=== PATIENT | female | born 1975 | race Caucasian/White ===

== ENCOUNTER 2022-06-07 09:32 | Emergency (ER) | payer OTHER, MEDICAID ==
[~2022-06-07] VITALS: Ht 165.1 cm; Wt 115.6 kg
[2022-06-07] MEDS ORDERED: LIDODERM1 EACH TOP (10:21)
[2022-06-07] MEDS ORDERED: NAPROSYN500 MG PO (10:21)
== END 2022-06-07 10:45 | disposition home or self-care (01) ==
LOC: ED 09:32
DX: S39.012A Strain of muscle, fascia and tendon of lower back, initial encounter (principal); J45.909 Unspecified asthma, uncomplicated; V47.5XXA Car driver injured in collision with fixed or stationary object in traffic accident, initial encounter
CPT/HCPCS: 99283; A9270